=== PATIENT | male | born 1980 | race Caucasian/White ===

== ENCOUNTER 2019-11-11 10:03 | Outpatient (CLI) | payer OTHER, SELFPAY | END 2019-11-11 10:23 | PROVIDERS: PCP Family Medicine; Visit Provider Family Medicine | DX: R00.2 Palpitations (principal) | CPT/HCPCS: 93225 ==

== ENCOUNTER 2019-11-12 05:12 | Outpatient (CLI) | payer OTHER, SELFPAY ==
[2019-11-12 12:04] LABS: HCT 46.4 % (40.0-50.0); MCH 31.6 pg (27.0-33.0); MCHC 34.5 % (32.0-36.0); MCV 91.5 fL (80-95); MPV 9.7 fL (8.0-11.0); Platelet Count 253 10^3/uL (130-400); RBC 5.07 10^6/uL (4.36-5.78); RDW 12.4 % (11.8-14.1); RDW-SD 41.9 fL; WBC 8.01 10^3/uL (4.4-10.8)
[2019-11-12 12:31] LABS: ALT 31 U/L (16-63); AST 27 U/L (15-37); Albumin 3.9 g/dL (3.4-5.0); Alkaline Phosphatase 69 U/L (46-116); Anion Gap 9.3 mmol/L (3-11); BUN 17 mg/dL (7-18); Bilirubin, Total 0.4 mg/dL (0.2-1.0); CO2 26.7 mmol/L (21.0-32.0); CREATININE 1.12 mg/dL (0.70-1.30); Calcium 9.5 mg/dL (8.5-10.1); Calculated LDL 151 mg/dL (<100); Chloride 105 mmol/L (98-107); Cholesterol 245 mg/dL (<200); Glucose 97 mg/dL (74-106); HDL Cholesterol 46 mg/dL (40-60); Magnesium 2.1 mg/dL (1.8-2.4); Potassium 4.4 mmol/L (3.5-5.1); Sodium 141 mmol/L (136-145); TSH (W/Ref FT4) 2.87 uIU/mL (0.36-3.74); Total Protein 7.6 g/dL (6.4-8.2); Triglyceride 240 mg/dL (<150)
== END 2019-11-12 05:32 ==
PROVIDERS: PCP Family Medicine; Visit Provider Family Medicine
DX: R00.2 Palpitations (principal)
CPT/HCPCS: 36415; 80053; 80061; 85027; 83735; 84443

== ENCOUNTER 2019-11-13 15:58 | Outpatient (CLI) | payer OTHER, SELFPAY ==
--- NOTE | 2019-11-14 08:53 | W.HOLTRPT ---
Date of service: 11/14/19 Time of Service: 08:53 Holter Monitor Report Referring Provider:: geri koo Indications:: Palpitations Holter Monitor Note: This was a 48-hour Holter monitor reportedly performed for indications of palpitations Rhythm throughout was sinus. Average heart rate was 75. Minimum heart rate was 46 mm maximum 164 There were no significant supraventricular dysrhythmias There were occasional ventricular ectopic beats, no couplets, no ventricular tachycardia No patient symptoms were reported
== END 2019-11-13 16:18 ==
PROVIDERS: PCP Family Medicine; Visit Provider Family Medicine
DX: R00.2 Palpitations (principal)
CPT/HCPCS: 93226

== ENCOUNTER 2019-12-11 02:47 | Outpatient (CLI) | payer OTHER, SELFPAY ==
--- NOTE | 2019-12-11 12:24 | DI.US_ITS ---
APPROVED REPORT EXAM: Comprehensive 2D, Doppler, and color-flow Echocardiogram Patient Location: Out-Patient Captain'S Assistant: Margaret Mays RDCS (AE) Indications: Palpitations, Ventricular Bigeminy Other Information Study Quality: Adequate Conclusion Left Ventricle : The left ventricle is normal size. The left ventricular systolic function is normal. The left ventricular ejection fraction is within the normal range. There is normal left ventricular wall thickness. There is normal LV segmental wall motion. The left ventricular diastolic function is normal. LVEF is 57%. Right Ventricle : The right ventricle is normal size. The right ventricular systolic function is norm al. The RVSP is 24.5 mmHg. Atria : The left atrium size is normal. The right atrium size is normal. Valves: There are no hemodynamically significant valvular lesions. Great Vessels : The aortic root is normal in size. The ascending aorta is normal in size. Aortic arch is normal in caliber. IVC is normal in size and collapses >50% with inspiration. Please see remainder of study for further details. Wall motion Left Ventricle The left ventricle is normal size. The left ventricular systolic function is normal. The left ventric ular ejection fraction is within the normal range. There is normal left ventricular wall thickness. T here is normal LV segmental wall motion. The left ventricular diastolic function is normal. There is no ventricular septal defect visualized. LVEF is 57%. Right Ventricle The right ventricle is normal size. The right ventricular systolic function is normal. The RVSP is 24 .5 mmHg. Atria The left atrium size is normal. The right atrium size is normal. The interatrial septum is intact wit h no evidence for an atrial septal defect. Aortic Valve The aortic valve is normal in structure. There is no aortic valvular stenosis. No aortic regurgitatio n is present. Mitral Valve Mild mitral annular calcification. No evidence of mitral valve stenosis. Trace mitral regurgitation. Tricuspid Valve The tricuspid valve is normal in structure. There is no tricuspid valve stenosis. Trace tricuspid reg urgitation. Pulmonic Valve The pulmonary valve is normal in structure. There is no pulmonic valvular stenosis. Trace pulmonic re gurgitation. Great Vessels The aortic root is normal in size. The ascending aorta is normal in size. Aortic arch is normal in ca liber. IVC is normal in size and collapses >50% with inspiration. Pericardium There is no pericardial effusion. 2D Dimensions IVSD d PLAX 1.05 cm M: 0.6-1.2 LV Vol A2C d MOD 115.7 mL LVPW d PLAX 1.04 cm M: 0.6 - 1.2 LV Vol A4C d MOD 101.2 mL LVID d PLAX 4.29 cm M: 4.2 - 5.8 LA vol/ BSA A2C s A-L 16.3 mL/m2 LVDs 3.05 cm M: 2.5 - 4.0 LA vol/ BSA A4C s A-L 13.1 mL/m2 Ao Root d 2.78 cm M: 3.1 - 3.7 LA Vol/ BSA Biplane s A-L 14.9 mL/m2 RA Area A4C 16.96 cm2 LA Area A4C s MOD 14.03 cm2 RA Vol/ BSA A4C s A-L 16.5 mL/m2 LA Area A2C s MOD 15.37 cm2 Ao Asc Diam d 3.40 cm M: 2.6 - 3.4 LV EF A4C MOD 56.4 % LV EF Teichholz 55.8 % LV EF A2C MOD 57.4 % LVEF (Esparza's) 56.82 % M: 52 - 72 LV EF Biplane MOD 56.8 % LV Volume 76.48 mL M: 62 - 150 SV 61.62 mL LV Volume Index 31.47 mL/m2 M: 34 - 74 SV Index 25.29 mL/m2 LV Vol Biplane MOD 108.5 mL FS 28.85 % M-Mode TAPSE 2.56 cm (M/F) >1.7 LV Diastology MV E' medial 0.077 (>0.07 m/s) E/A Ratio 1.4 LV E/e MED 9.30 (<14) MV E Vmax 0.72 (0.4-1.3 m/s) MV E' lateral 0.090 (>0.1 m/s) MV A Vmax 0.50 (0.4-1.3 m/s) LV E/e LAT 7.90 (<14) MV E/A Ratio 1.32 MV E/E' medial 9.33 MV E/E' lateral 7.95 Aortic Valve LVOT Area 3.03 cm2 AoV Area Vmax 2.53 cm2 LVOT Vmax 1.10 m/s AoV Area/ BSA (Vmax) 1.04 cm2/m2 LVOT Mean Ben. 0.72 m/s MELLISA Mean Ben. 2.34 cm2 LVOT Peak Grad 4.9 mmHg MELLISA Mean Ben. Index 0.96 cm2/m2 LVOT Mean Grad 2.4 mmHg LVOT VTI 0.189 m LVOT Diam s 1.95 cm AoV Vmax 1.32 m/s Velocity Ratio 0.83 AoV Mean Ben. 0.94 m/s AoV Peak Grad 7.0 mmHg LVOT SV 57.29 mL AoV Mean Grad 3.9 mmHg AoV VTI 0.213 m AoV Area VTI 2.68 cm2 AoV Area/ BSA (VTI) 1.10 cm/m2 Mitral Valve MV DT 227 (160-240 msec) MV PHT 66 msec MV Area PHT 3.35 cm2 Pulmonary Valve PV Vmax 0.87 (0.5-1.5 m/s) RVOT Peak Gr. 2.01 mmHg PV Peak Grad 3.0 mmHg RVOT Mean Gr. 0.95 mmHg PV Mean Grad 1.5 mmHg RVOT VTI 0.137 m PV VTI 0.144 m RVOT Vmax 0.71 m/s Tricuspid Valve TR Peak Grad 21.4 mmHg TR Vmax 2.32 m/s RA Pressure 3.00 mmHg RVSP (TR) 24.5 mmHg
== END 2019-12-11 03:07 ==
PROVIDERS: PCP Family Medicine; Visit Provider Family Medicine
DX: I49.8 Other specified cardiac arrhythmias (principal); R00.2 Palpitations
CPT/HCPCS: 93306

== ENCOUNTER 2021-07-14 18:56 | Outpatient (REF) | payer OTHER, SELFPAY ==
[2021-07-14 22:01] LABS: C Diff PCR Negative (Negative)
[2021-07-15 23:26] LABS: Campylobacter PCR Negative (Negative); Salmonella PCR Negative (Negative); Shiga Toxin PCR Negative (Negative); Shigella/Enteroinvasive Ecoli Negative (Negative)
== END 2021-07-14 18:57 | disposition home or self-care (01) ==
LOC: LBN 18:56
PROVIDERS: PCP Nurse Practitioner Family; Visit Provider Nurse Practitioner Family
DX: R19.7 Diarrhea, unspecified (principal)
CPT/HCPCS: 87493; 87505; U0003; 87177

== ENCOUNTER 2022-10-04 18:05 | Outpatient (CLI) | payer OTHER, SELFPAY ==
[2022-10-04 12:58] LABS: Hemoglobin A1C 5.5 % (<5.7)
[2022-10-04 13:09] LABS: Calculated LDL 177 mg/dL (<100); Cholesterol 266 mg/dL (<200); HDL Cholesterol 47 mg/dL (40-60); Triglyceride 211 mg/dL (<150)
[2022-10-04 13:18] LABS: Uric Acid 8.4 mg/dL (3.5-7.2)
[2022-10-05 10:21] LABS: Lyme Ab w Rflx to Lyme Confirm Negative (Negative)
[2022-10-07 16:36] LABS: Anaplasma phagocytophilum Negative (Negative); B. miyamotoi PCR Negative (Negative); Babesia divergens/MO-1 Negative (Negative); Babesia duncani Negative (Negative); Babesia microti Negative (Negative); Ehrlichia chaffeensis Negative (Negative); Ehrlichia ewingii/canis Negative (Negative); Ehrlichia muris eauclairensis Negative (Negative)
== END 2022-10-04 18:06 | disposition home or self-care (01) ==
LOC: LBO 18:06
PROVIDERS: PCP Nurse Practitioner Family; Visit Provider Nurse Practitioner Family
DX: Z13.1 Encounter for screening for diabetes mellitus (principal); E78.5 Hyperlipidemia, unspecified; M10.9 Gout, unspecified; M25.50 Pain in unspecified joint
CPT/HCPCS: 36415; 80061; 87798; 83036; 84550; 86618

== ENCOUNTER 2024-09-16 13:53 | Outpatient (CLI) | payer OTHER, SELFPAY ==
--- NOTE | 2024-09-16 13:45 | DI.RAD_ITS ---
Exam(s) XR CHEST 2V PA LATERAL EXAM: XR CHEST 2V PA LATERAL CLINICAL HISTORY: R05.3 chronic cough, cough >4 months TECHNIQUE: 2D digital imaging was performed. Two views. COMPARISON: CR ABD FLAT UPRIGHT PA CHEST from 05/12/2013 FINDINGS: HEART: Normal size. Aorta: Not dilated. PULMONARY VASCULATURE: Normal. MEDIASTINUM: Unremarkable. LUNGS: Clear. PLEURAL SPACE: No pleural effusion or pneumothorax. BONE:Unremarkable for age. SOFT TISSUES: Unremarkable. IMPRESSION: No acute abnormality. DATA REPOSITORY: RADIATION DOSE DELIVERED:
== END 2024-09-16 14:13 ==
PROVIDERS: PCP Nurse Practitioner Family; Visit Provider Nurse Practitioner Family
DX: R05.3 Chronic cough (principal)
CPT/HCPCS: 71046

== ENCOUNTER 2025-02-10 12:18 | Emergency (ER) | payer OTHER, SELFPAY ==
[2025-02-10] VITALS (12 sets, daily range): BP systolic 137–149; BP diastolic 77–93; PULSE 57–83; RESP 11–20; TEMP 36.9; O2SAT 92–98
--- NOTE | 2025-02-10 12:15 | RT.EKG_ITS ---
APPROVED REPORT Exam: Resting ECG Reason for Exam: chest pain Patient Location: E HR:76 bpm ECG Measurements Heart Rate 76 AXIS NV 172 P 5 QRSd 88 QRS 40 QT 375 T 25 QTc 424 Conclusion Sinus rhythm...normal P axis, V-rate 60- 99 No Occlusion [place]
--- NOTE | 2025-02-10 12:45 | DI.RAD_ITS ---
Exam(s) XR CHEST 2V PA LATERAL EXAM: XR CHEST 2V PA LATERAL CLINICAL HISTORY: Chest pain. TECHNIQUE: 2D digital imaging was performed. COMPARISON: CR XR CHEST 2V PA LATERAL from 09/16/2024 FINDINGS: 2 views: Heart size is normal. The mediastinum is not widened. Lungs are clear. No infiltrates nor pleural effusions. IMPRESSION: No acute pulmonary findings. DATA REPOSITORY: RADIATION DOSE DELIVERED:
[2025-02-10 13:23] LABS: Abs Immature Grans 0.04 10^3/uL (0.0-0.06); HCT 44.1 % (40.0-50.0); HGB 15.1 g/dL (13.5-17.5); Immature Grans % 0.5 %; MCH 31.8 pg (27.0-33.0); MCHC 34.2 % (32.0-36.0); MCV 93 fL (80-95); MPV 9.1 fL (8.0-11.0); Platelet Count 232 10^3/uL (130-400); RBC 4.75 10^6/uL (4.36-5.78); RDW 12.4 % (11.8-14.1); RDW-SD 42.7 fL; WBC 7.28 10^3/uL (4.4-10.8)
[2025-02-10] MEDS: Ketorolac 30 MG/ML VIAL (13:25)
[2025-02-10 13:33] LABS: ALT 50 U/L (10-49); AST 66 U/L (<34); Albumin 4.3 g/dL (3.2-5.0); Alkaline Phosphatase 83 U/L (46-116); Anion Gap 7 mmol/L (3-11); BUN 12 mg/dL (9-23); Bilirubin, Total 0.70 mg/dL (0.2-1.2); CO2 28.0 mmol/L (20.0-31.0); Calcium 8.8 mg/dL (8.3-10.6); Chloride 104 mmol/L (98-107); Glucose 97 mg/dL (74-106); Potassium 4.2 mmol/L (3.5-5.1); Sodium 139 mmol/L (136-145); Total Protein 7.5 g/dL (5.7-8.2); Troponin I 5 ng/L (<54)
--- NOTE | 2025-02-10 13:40 | W.ED.GENAD ---
Discharge Plan Disposition Patient Disposition: Home Discharge Details Clinical Impression: Chest pain, unspecified Primary Care Provider: Julio Mendieta ED Provider: Ignacio Bingham Home Meds and New Rx's Prescriptions: Continued triamcinolone acetonide 0.5 % cream 1 applic topical BID Qty: 15 3RF lorazepam 0.5 mg tablet 0.5 mg PO QID PRN PRN (Reason: anxiety) Qty: 28 2RF losartan 25 mg tablet 25 mg PO DAILY Qty: 90 3RF Discharge Instructions Additional Instructions: You are seen in the emergency department for your chest pain. Your blood work showed no sign of any damage to your heart. Your chest x-ray showed no sign of any pneumonia or any blood clots. As we discussed if you develop any shortness of breath chest pain or travels to your jaw or any chest pain associated with sweating please return to the emergency department. Otherwise please follow-up as needed primary care provider. For your pain please take medications as follows: 1. Take acetaminophen (Tylenol), 1,000 mg (two 500 mg tabs) every 6 hours [2. Take ibuprofen (Advil), 400 mg every 6 hours.] Stand Alone Forms: Portal Information Discharge Data Discharge Date/Time-TO BE ENTERED AT DEPARTURE: 02/10/25 15:20 HPI General Date/Time Provider Initiated Documentation: 02/10/25 12:55. HPI Narrative: MDM This is an overall quite well-appearing normothermic and not tachycardic 44-year-old male with elevated BMI and chest pain concerning for possibility of ACS for which patient will undergo troponin testing. His ECG is nonischemic. He has no tearing quality to suggest aortic dissection. No pain out of proportion to suggest necrotizing soft tissue infection. No positional component to suggest pericarditis. No rash to chest to suggest zoster. No cough to suggest pneumonia. No recent vomiting to suggest increased risk for esophageal rupture. I considered PE however patient is PERC negative so I did not send a D-dimer. Not hypotensive nor tachycardic to suggest tamponade. Soft nontender abdomen so doubt acute cholecystitis. In the absence of abdominal pain I am not suspicious for pancreatitis. Will reassess following labs and two-view chest x-ray. 1:45 PM CBC lacks anemia thrombocytopenia and leukocytosis. Comprehensive metabolic panel showing mild elevation of AST and ALT but normal alkaline phosphatase. No hyperbilirubinemia. In the absence of any abdominal pain I did not feel he required an emergent right upper quadrant ultrasound nor CT scan. No ENA nor CKD. No acute electrolyte abnormalities. Initial reassuring troponin. 5:20 PM Patient and I discussed that he should return to the emergency department if he developed chest pain associated with sweating or syncope or any other concerns. He had a reassuring repeat troponin. Given the intermittent stabbing nature of his pain my suspicion was lower for ACS. Diagnostic interpretations performed by me: Per my independent interpretation chest x-ray shows: Per my independent interpretation EKG shows: Narrow complex normal sinus rhythm at a rate of 76. Normal axis. Intervals within normal limits. No ST segment abnormalities. No T wave inversions. Compared to prior dated 5 years ago PVCs are no longer present. History of Present Illness This is a patient with a history of high cholesterol and mildly elevated blood pressure presenting with chest pain. The patient reports experiencing intermittent, sharp, stabbing left-sided chest pain that began as soreness approximately a week ago. The pain radiates to his back and down his arm. He has not identified any specific triggers for the pain, which can occur even upon waking in the morning. He reports no recent strain or changes in his work routine. He also reports no temperature or cough. The pain is not influenced by his posture, whether lying down or sitting up. He has not observed any rashes on his chest, although he does have dry skin. The pain does not worsen with deep breaths. He has no known history of thrombosis in his legs or lungs. His respiratory function is currently unimpaired. He occasionally smokes cigarettes and uses drugs. Exam General: Well-appearing in no acute distress speaking in complete sentences. Head: Normocephalic, atraumatic. Eye: Extraocular eye movements intact. No conjunctival injection. No scleral icterus. Ear, nose, mouth, throat: Grossly normal inspection. Normal voice, handling secretions normally. Neck: Trachea midline. Cardiovascular: Well-perfused distal extremities. Regular rate and rhythm. Respiratory: Nonlabored respiration. Clear lungs. Gastrointestinal: Nondistended abdomen. Soft. Nontender. No rebound. No guarding Musculoskeletal: No edema. Moving all 4 extremities spontaneously. Skin: Normal for age and race, grossly normal temperature and turgor. No acute rash. Neurologic: Alert and appropriate, no apparent acute deficits. Psychiatric: Mood and manner are appropriate. Grooming and personal hygiene are appropriate. Related Data Home Medications ?Medication ?Instructions ?Recorded ?Confirmed triamcinolone acetonide 0.5 % 1 applic topical BID #15 grams 11/01/20 02/10/25 topical cream lorazepam 0.5 mg tablet 0.5 mg PO QID PRN PRN anxiety #28 09/17/24 02/10/25 tabs losartan 25 mg tablet 25 mg PO DAILY #90 tabs 09/17/24 02/10/25 Previous Rx's ?Medication ?Instructions ?Recorded triamcinolone acetonide 0.5 % 1 applic topical BID #15 grams 11/01/20 topical cream lorazepam 0.5 mg tablet 0.5 mg PO QID PRN PRN anxiety #28 09/17/24 tabs losartan 25 mg tablet 25 mg PO DAILY #90 tabs 09/17/24 Allergies Allergy/AdvReac Type Severity Reaction Status Date / Time No Known Allergies Allergy Verified 02/10/25 12:39 General Stated Complaint: Chest Pain PATIENCE: 3 Course Vital Signs Vital signs: Vital Signs Temperature 36.9 C 02/10/25 12:33 Pulse 83 02/10/25 12:33 Respiratory Rate 18 02/10/25 12:33 Blood Pressure 137/93 H 02/10/25 12:33 Pulse Oximetry 98 02/10/25 12:33 Temperature 36.9 C 02/10/25 12:33 Temperature Source Oral 02/10/25 12:33 Pulse 83 02/10/25 12:33 Respiratory Rate 16 02/10/25 13:14 Respiratory Effort Normal, Non-Labored 02/10/25 13:14 Respiratory Depth Normal 02/10/25 13:14 Respiratory Pattern Normal 02/10/25 13:14 Blood Pressure 137/93 H 02/10/25 12:33 Blood Pressure Position Sitting 02/10/25 12:33 Pulse Oximetry 98 02/10/25 12:33 Pain Level 5 02/10/25 12:33 Lab/Test Results Lab/Test Results: Laboratory Tests Range/Units 02/10/25 13:10 WBC (4.4-10.8) 10^3/uL 7.28 RBC (4.36-5.78) 10^6/uL 4.75 Hgb (13.5-17.5) g/dL 15.1 Hct (40.0-50.0) % 44.1 MCV (80-95) fL 93 MCH (27.0-33.0) pg 31.8 MCHC (32.0-36.0) % 34.2 RDW (11.8-14.1) % 12.4 Plt Count (130-400) 10^3/uL 232 MPV (8.0-11.0) fL 9.1 Immature Gran % % 0.5 Neutrophils % % 58.4 Lymphocytes % % 25.7 Monocytes % % 11.3 Eosinophils % % 3.4 Basophils % % 0.7 Nucleated RBC % (0.0-0.3) % 0.0 Absolute Neutrophils (1.2-6.7) 10^3/uL 4.25 Absolute Lymphocytes (1.2-3.4) 10^3/uL 1.87 Absolute Monocytes (0.1-0.8) 10^3/uL 0.82 H Absolute Eosinophils (0.0-0.7) 10^3/uL 0.25 Absolute Basophils (0.0-0.2) 10^3/uL 0.05 Sodium (136-145) mmol/L 139 Potassium (3.5-5.1) mmol/L 4.2 Chloride (98-107) mmol/L 104 Carbon Dioxide (20.0-31.0) mmol/L 28.0 Anion Gap (3-11) mmol/L 7 BUN (9-23) mg/dL 12 Creatinine (0.73-1.18) mg/dL 1.07 Est GFR (CKD-EPI 2020) (mL/min/1.73m2) 75.35 Glucose (74-106) mg/dL 97 Calcium (8.3-10.6) mg/dL 8.8 Total Bilirubin (0.2-1.2) mg/dL 0.70 AST (<34) U/L 66 H ALT (10-49) U/L 50 H Alkaline Phosphatase (46-116) U/L 83 Troponin I (<54) ng/L 5 Total Protein (5.7-8.2) g/dL 7.5 Albumin (3.2-5.0) g/dL 4.3 PFSH All Active Problems (Updated 02/10/25 @ 14:56 by Ignacio Bingham MD) Chest pain, unspecified (Acute) Gout attack (Acute) Chronic cough (Acute) Essential hypertension (Acute) Hyperlipidemia (Acute) Elevated blood pressure reading (Acute) Sebaceous cyst (Acute) Joint pain (Acute) Obesity (Chronic) Gout (Chronic) Rash (Acute) Depression (Chronic) Ventricular bigeminy (Acute) Palpitations (Acute) Obstructive sleep apnea syndrome (Chronic) Has CPAP, but does not use it Dystrophic nail (Acute) Anxiety (Chronic) GERD (gastroesophageal reflux disease) (Chronic 09/08/14) Flat feet (Chronic) ADHD (attention deficit hyperactivity disorder) (Chronic) DX 1994 Medical History History of sebaceous cyst Family History Mother Depression Father Essential hypertension Hyperlipidemia Maternal Grandmother Breast cancer Paternal Grandmother No problems noted. Brother No problems noted. Brother No problems noted. Social History Smoking/Tobacco Use Status: Never Second Hand Exposure: No Smoking risk assessment performed?: Yes Alcohol Intake: current Alcohol Intake frequency: a few times a week Alcohol type: wine and hard liquor Drug use: Never Substance use type: does not use Caregiver/Support person: No Household members: spouse, children and other Details: client and renter Number of Children: 2 number of grandchildren: 0 Do you need help understanding health information?: Never Pets and animals: Yes Pets and animals: cat(s) and dog(s) Sexually active: Yes Do you think of yourself as: straight/heterosexual Current gender identity: male What is your relationship status?: How often do you talk on the phone with friends or family?: three or more times per week How often do you get together with friends or relatives?: three or more times per week How often do you attend hindu or mormon services?: 4 or more times per year Do you belong to any clubs or organized social groups?: no Panel score (0-1 are the most socially isolated patients): 3 What type of physical activity do you participate in: walking Duration: 15-30 minutes/day Frequency: 1-2 times per week Alfreda/Rastafari: Sikhism Special alfreda needs: No Seatbelt use: always Helmet use: Yes Helmet use: always Drive intox or ride w/intox special client bus driver: No PAWSS Have you Been Recently Intoxicated or Drunk Within the Last 30 days?: Yes Have you Ever Experienced Previous Episodes of Alcohol Withdrawal?: No Have you ever Experienced Withdrawal Seizures?: No Have you ever Experienced Delirium Tremens(DT)s?: No Have you ever undergone Alcohol Rehabilitation Treatment (i.e, inpt ot outpatient treatment programs)?: No Have you ever Experienced Blackouts?: No Have you ever Combined Alcohol with other Downers within the last 90 days?: No Have you ever Combined Alcohol with any other Substance of Abuse during the last 90 days?: No Positive Blood Alcohol level on Presentation? [PCS.BAL]: No Evidence of Increased Autonomic Activity (i.e. HR>120, tremor, sweating, agitation, nausea)?: No Result: 1
[2025-02-10 15:00] LABS: Troponin I 4 ng/L (<54)
== END 2025-02-10 15:20 | disposition home or self-care (01) ==
PROVIDERS: Emergency Provider Emergency Medicine; PCP Nurse Practitioner Family
DX: R07.9 Chest pain, unspecified (principal); I10 Essential (primary) hypertension; E78.5 Hyperlipidemia, unspecified
CPT/HCPCS: 80053; 93005; 96374; 99284; 71046; 84484; 85025; 93010; J1885

== ENCOUNTER 2025-02-10 14:48 | Outpatient (REF) | payer OTHER, SELFPAY ==
[2025-02-10 16:13] LABS: TSH (W/Ref FT4) 2.02 uIU/mL (0.55-4.78)
[2025-02-10 16:22] LABS: Hemoglobin A1C 5.3 % (<5.7)
[2025-02-10 16:25] LABS: Cholesterol 236 mg/dL (<200); HDL Cholesterol 51 mg/dL (>40)
[2025-02-10 16:39] LABS: Uric Acid 9.2 mg/dL (3.7-9.2)
[2025-02-19 23:30] LABS: Testosterone, Free 56.4 pg/mL (35.0-155.0)
== END 2025-02-10 14:49 | disposition home or self-care (01) ==
LOC: LBN 14:48
PROVIDERS: PCP Nurse Practitioner Family; Visit Provider Nurse Practitioner Family
DX: E03.9 Hypothyroidism, unspecified (principal); E29.1 Testicular hypofunction; Z13.220 Encounter for screening for lipoid disorders; Z13.1 Encounter for screening for diabetes mellitus; M10.9 Gout, unspecified
CPT/HCPCS: 80061; 84402; 84403; 83036; 84443; 84550